=== PATIENT | male | born 1960 | race Caucasian/White ===

== ENCOUNTER 2023-04-03 15:04 | Observation (INO) | payer OTHER, SELFPAY ==
[2023-04-03] VITALS (16 sets, daily range): BP systolic 108–158; BP diastolic 68–97; PULSE 71–85; RESP 18–28; TEMP 36.4–37.2; O2SAT 92–100; BMI 23.6
--- NOTE | 2023-04-03 15:23 | DI.RAD.S_ITS ---
PROCEDURE: XR CHEST 1V INDICATIONS: chest pain TECHNIQUE: One view of the chest was acquired. COMPARISON: None. FINDINGS: Surgical changes and devices: None. Lungs and pleura: Minimal streaky left basilar opacities favored to represent atelectasis. Lungs are otherwise clear. No pleural effusions or pneumothorax. Mediastinum: Mediastinal contours appear normal. Heart size is normal. Bones and chest wall: No suspicious bony lesions. Overlying soft tissues appear unremarkable. IMPRESSION: Streaky left basilar opacities favored to represent atelectasis. Otherwise, no focal airspace disease. No acute cardiopulmonary abnormalities. Consider repeat imaging with dedicated upright PA and lateral views of the chest when patient is able. Dictated by: Narendra Hurtado M.D. on 04/03/2023 at 16:15 Approved by: Narendra Hurtado M.D. on 04/03/2023 at 16:16
[2023-04-03 15:31] LABS: Add Manual Diff / Slide Review NO; Basophils Absolute Auto 100 /uL (0-100); Basophils Percent Auto 1.2 % (0-2); Eosinophils Absolute Auto 200 /uL (0-450); Eosinophils Percent Auto 4.4 % (2-4); Hematocrit 41.5 % (41-53); Hemoglobin 13.7 g/dL (13.5-17.5); Lymphocytes Absolute Auto 1600 /uL (1100-4500); Lymphocytes Percent Auto 30.9 % (25-40); Mean Corpuscular HGB Conc 33.1 % (30-36); Mean Corpuscular Hemoglobin 28.9 PG (26-34); Mean Corpuscular Volume 87.4 fL (80-100); Monocytes Absolute Auto 700 /uL (0-900); Monocytes Percent Auto 13.2 % (3-14); Neutrophils Absolute Auto 2600 /uL (1500-7000); Neutrophils Percent Auto 50.3 % (50-75); Platelet Count 232 X10^3/uL (150-400); Red Blood Cell Count 4.75 X10^6/uL (4.5-5.9); Red Cell Distribution Width 15.3 % (11.6-14.8); White Blood Cell Count 5.1 X10^3/uL (4.5-11.0)
[2023-04-03 15:42] LABS: INR 1.1 (0.9-1.3); Prothrombin Time 12.2 SECONDS (10.1-12.7)
[2023-04-03 15:44] LABS: PTT Partial Thromboplastin Tim 23 SECONDS (26-36)
[2023-04-03 15:46] LABS: Alanine Aminotransferase 21 IU/L (<50); Albumin 4.3 g/dL (3.5-5.0); Albumin Globulin Ratio 1.1 (1.0-2.8); Alkaline Phosphatase 88 U/L (38-126); Aspartate Aminotransferase 26 IU/L (17-59); Bilirubin Total 0.5 mg/dL (0.2-1.3); Blood Urea Nitrogen 18 mg/dL (9-20); Calcium 9.4 mg/dL (8.4-10.2); Carbon Dioxide 24 mmol/L (22-32); Chloride 105 mmol/L (98-107); Creatine Kinase 120 U/L (55-170); Estimated Glomerular Filt Rate > 60 mL/min (>60); Globulin 3.8 g/dL (1.7-4.1); Glucose 219 mg/dL (80-110); Lipase 981 U/L (23-300); Magnesium 1.8 mg/dL (1.6-2.3); Sodium 138 mmol/L (137-145); Total Protein 8.1 g/dL (6.3-8.2)
[2023-04-03 15:48] LABS: HEMOLYSIS 79 (0-50); Potassium 4.3 mmol/L (3.4-5.1)
--- NOTE | 2023-04-03 15:53 | ED.CHESTPAIN ---
HPI - Chest Pain General Chief Complaint: Chest Pain Stated Complaint: bad heart, thinks he is having a heart attack Time Seen by Provider: 04/03/23 15:12 Source: patient Mode of arrival: Wheelchair Limitations: no limitations History of Present Illness HPI narrative: Patient here for sudden onset left-sided chest pain radiating to the left neck 2 hours prior to arrival. Patient took aspirin Plavix Eliquis lisinopril carvedilol. Patient states took home nitroglycerin and it has helped. Patient is from [facility]. He states he is flying back tomorrow to see his administrative support associate for wellness check. Also his pain management doctor. Patient states he had 4 heart attacks in the past and a heart catheterization with stent placed this year. Patient sees Dr. Torres. Related Data Home Medications Medication Instructions Recorded Confirmed amiodarone 200 mg tablet 200 mg PO DAILY 04/03/23 04/03/23 apixaban 5 mg tablet (Eliquis) 5 mg PO BID 04/03/23 04/03/23 aspirin 81 mg tablet,delayed 81 mg PO DAILY 04/03/23 04/03/23 release carvedilol 3.125 mg tablet 3.125 mg PO BID 04/03/23 04/03/23 ciprofloxacin HCl 500 mg tablet 500 mg PO BID 04/03/23 04/03/23 clopidogrel 75 mg tablet 75 mg PO DAILY 04/03/23 04/03/23 empagliflozin 25 mg tablet 25 mg PO QAM 04/03/23 04/03/23 (Jardiance) glipizide 5 mg tablet 5 mg PO DAILY 04/03/23 04/03/23 lisinopril 5 mg tablet 5 mg PO DAILY 04/03/23 04/03/23 metformin 1,000 mg tablet 1,000 mg PO BID 04/03/23 04/03/23 metoprolol succinate 50 mg 50 mg PO DAILY 04/03/23 04/03/23 tablet,extended release 24 hr metronidazole 500 mg tablet 500 mg PO 3XD 04/03/23 04/03/23 nitroglycerin 0.4 mg sublingual 0.4 mg sublingual PRN PRN Chest 04/03/23 04/03/23 tablet Pain potassium chloride 10 mEq 20 meq PO DAILY 04/03/23 04/03/23 capsule,extended release Allergies Allergy/AdvReac Type Severity Reaction Status Date / Time No Known Drug Allergies Allergy Verified 04/03/23 15:14 Review of Systems Review of Systems Narrative: GENERAL: negative chills, fatigue, malaise, fever, sweats. HEENT: negative sinus pain, ear pain, sore throat RESPIRATORY: negative dyspnea, cough CARDIOVASCULAR: Positive chest pain, negative palpitations GASTROINTESTINAL: negative nausea, vomiting, abdominal pain : negative dysuria, frequency, hematuria MUSCULOSKELETAL: negative muscle or bony pain SKIN: negative rash, skin lesions NEUROLOGIC: negative weakness, numbness ROS Unobtainable: All systems reviewed & are unremarkable except as noted in HPI and below Patient History Social History household members: none Smoking Status: Never smoker Smoking Status: Never smoker alcohol intake frequency: other Substance Use Type: does not use Exam Narrative Exam Narrative: GENERAL: in no distress, not toxic not dyspneic HEAD: Normocephalic. EYES: Pupils equal round ENT: Mucous membranes moist. NECK: Trachea midline. CARDIOVASCULAR: Regular rate and rhythm RESPIRATORY: Clear to auscultation. Breath sounds equal bilaterally. No wheezes, rales, or rhonchi. GASTROINTESTINAL: Abdomen soft, non-tender EXTREMITIES: No gross deformities. BACK: No flank tenderness. NEURO: AOx4. Clear speech SKIN: Warm and dry PSYCH: Not anxious, is cooperative Initial Vital Signs Initial Vital Signs: Vital Signs Temperature 99.0 F 04/03/23 15:15 Pulse Rate 84 04/03/23 15:15 Respiratory Rate 18 04/03/23 15:15 Blood Pressure 158/97 H 04/03/23 15:15 Pulse Oximetry 99 04/03/23 15:15 Oxygen Delivery Method Room Air 04/03/23 15:15 Course Orders Ordered: Acetaminophen (Acetaminophen 325 Mg Tablet) 650 mg PO Q6H PRN PRN Reason: Fever/Mild Pain (1-3) Hydrocodone Bitart/Acetaminophen (Hydrocodone/Acet 5/325 Tablet) 1 tab PO Q4HR PRN PRN Reason: Pain, Moderate (4-6) Last Admin: 04/04/23 05:00 Dose: 1 tab Documented By: Admin: 04/03/23 21:48 Dose: 1 tab Documented By: TRACIE Amiodarone HCl (Amiodarone 200 Mg Tablet) 200 mg PO DAILY DAVID Apixaban (Apixaban 5 Mg Tablet) 5 mg PO BID [facility] Last Admin: 04/03/23 21:50 Dose: 5 mg Documented By: TRACIE Aspirin (Aspirin Ec 81 Mg Tablet) 81 mg PO DAILY [facility] Atorvastatin Calcium (Atorvastatin 20 Mg Tablet) 80 mg PO BEDTIME [facility] Last Admin: 04/03/23 21:48 Dose: 80 mg Documented By: TRACIE Carvedilol (Carvedilol 3.125 Mg Tablet) 3.125 mg PO BID [facility] Last Admin: 04/03/23 21:49 Dose: 3.125 mg Documented By: TRACIE Ciprofloxacin (Ciprofloxacin 250 Mg Tablet) 500 mg PO BID [facility] Last Admin: 04/03/23 21:48 Dose: 500 mg Documented By: TRACIE Clopidogrel Bisulfate (Clopidogrel 75 Mg Tablet) 75 mg PO DAILY [facility] Dextrose (D10w) 100 mls @ 1,200 mls/hr IV PRN PRN PRN Reason: Hypoglycemia Insulin Human Lispro (Insulin Lispro 100 Unit/Ml 3ml Vial) 0 unit SUBCUT ACHS [facility]; Protocol Last Admin: 04/04/23 08:12 Dose: Not Given Documented By: Admin: 04/03/23 22:02 Dose: 2 unit Documented By: TRACIE Co-signed By: MS Lisinopril (Lisinopril 5 Mg Tablet) 5 mg PO DAILY [facility] Lorazepam (Lorazepam 0.5 Mg Tablet) 0.5 mg PO Q4HR PRN PRN Reason: Anxiety Last Admin: 04/03/23 21:48 Dose: 0.5 mg Documented By: TRACIE Metoprolol Succinate (Metoprolol Er 50 Mg Tablet) 50 mg PO DAILY [facility] Metronidazole (Metronidazole 500 Mg Tablet) 500 mg PO TID [facility] Last Admin: 04/03/23 21:50 Dose: 500 mg Documented By: TRACIE Morphine Sulfate (Morphine 2 Mg/Ml Inj) 2 mg IV Q2HR PRN PRN Reason: Pain, Moderate (4-6) Naloxone HCl (Naloxone 0.4 Mg/Ml Vial) 0.2 mg IV Q2MIN PRN PRN Reason: Opiate Reversal Ondansetron HCl (Ondansetron 4 Mg/2 Ml Inj) 4 mg IV Q8HR PRN PRN Reason: Nausea And Vomiting Discontinued Medications Carvedilol (Carvedilol 3.125 Mg Tablet) 3.125 mg PO NOW ONE Stop: 04/03/23 21:37 Last Admin: 04/03/23 22:15 Dose: 3.125 mg Documented By: TRACIE Heparin Sodium (Porcine) (Heparin 5,000 Unit/Ml Vial) 5,000 unit SUBCUT BID DAVID Nitroglycerin (Nitroglycerin Oint 1 Inch/Gm Oint...G.) 1 inch TOP NOW ONE Stop: 04/03/23 15:54 Last Admin: 04/03/23 16:07 Dose: 1 inch Documented By: URMILA Vital Signs Vital signs: Vital Signs - 8 hr 04/03/23 15:15 04/03/23 15:45 04/03/23 16:07 Temperature 99.0 F Pulse Rate 84 76 75 Respiratory Rate 18 18 Blood Pressure 158/97 H 115/77 113/76 Pulse Oximetry 99 98 Oxygen Delivery Method Room Air Room Air 04/03/23 16:10 04/03/23 16:11 04/03/23 16:11 Temperature Pulse Rate 83 80 Respiratory Rate 23 24 Blood Pressure 113/75 Pulse Oximetry 98 98 Oxygen Delivery Method 04/03/23 16:30 04/03/23 16:30 04/03/23 17:02 Temperature Pulse Rate 74 76 Respiratory Rate 18 20 Blood Pressure 113/68 Pulse Oximetry 99 99 Oxygen Delivery Method 04/03/23 17:03 Temperature Pulse Rate Respiratory Rate Blood Pressure 129/87 Pulse Oximetry Oxygen Delivery Method MDM - Chest Pain Lab Data 04/04/23 04:55 04/04/23 04:55 Labs: Lab Results 04/03/23 04/03/23 Range/Units 15:18 17:15 WBC 5.1 (4.5-11.0) X10^3/uL RBC 4.75 (4.5-5.9) X10^6/uL Hgb 13.7 (13.5-17.5) g/dL Hct 41.5 (41-53) % MCV 87.4 (80-100) fL MCH 28.9 (26-34) PG MCHC 33.1 (30-36) % RDW 15.3 H (11.6-14.8) % Plt Count 232 (150-400) X10^3/uL Neut % (Auto) 50.3 (50-75) % Lymph % (Auto) 30.9 (25-40) % Allen % (Auto) 13.2 (3-14) % Eos % (Auto) 4.4 H (2-4) % Baso % (Auto) 1.2 (0-2) % Neut # (Auto) 2600 (0771-7932) /uL Lymph # (Auto) 1600 (3372-5582) /uL Allen # (Auto) 700 (0-900) /uL Eos # (Auto) 200 (0-450) /uL Baso # (Auto) 100 (0-100) /uL PT 12.2 (10.1-12.7) SECONDS INR 1.1 (0.9-1.3) APTT 23 L (26-36) SECONDS Sodium 138 (137-145) mmol/L Potassium 4.3 (3.4-5.1) mmol/L Chloride 105 (98-107) mmol/L Carbon Dioxide 24 (22-32) mmol/L BUN 18 (9-20) mg/dL Creatinine 0.82 (0.66-1.25) mg/dL Estimated GFR > 60 (>60) mL/min BUN/Creatinine Ratio 22.0 (6-22) Glucose 219 H (80-110) mg/dL Calcium 9.4 (8.4-10.2) mg/dL Magnesium 1.8 (1.6-2.3) mg/dL Total Bilirubin 0.5 (0.2-1.3) mg/dL AST 26 (17-59) IU/L ALT 21 (<50) IU/L Alkaline Phosphatase 88 (38-126) U/L Total Creatine Kinase 120 105 (55-170) U/L Troponin I < 0.012 < 0.012 (0.01-0.034) ng/mL Total Protein 8.1 (6.3-8.2) g/dL Albumin 4.3 (3.5-5.0) g/dL Globulin 3.8 (1.7-4.1) g/dL Albumin/Globulin Ratio 1.1 (1.0-2.8) Lipase 981 H (23-300) U/L Imaging Data Chest x-ray: Radiologist's Impression: [address] [address] XRay Report Signed Patient: Mauri Red MR#: [id number] : 1960 Acct:[id number] Age/Sex: 62 / M Date of Service: 04/03/23 Loc: ED Accession Number: [id number] Procedure: XR chest 1V Ordering Provider: Ranulfo Hart MD PROCEDURE: XR CHEST 1V INDICATIONS: chest pain TECHNIQUE: One view of the chest was acquired. COMPARISON: None. FINDINGS: Surgical changes and devices: None. Lungs and pleura: Minimal streaky left basilar opacities favored to represent atelectasis. Lungs are otherwise clear. No pleural effusions or pneumothorax. Mediastinum: Mediastinal contours appear normal. Heart size is normal. Bones and chest wall: No suspicious bony lesions. Overlying soft tissues appear unremarkable. IMPRESSION: Streaky left basilar opacities favored to represent atelectasis. Otherwise, no focal airspace disease. No acute cardiopulmonary abnormalities. Consider repeat imaging with dedicated upright PA and lateral views of the chest when patient is able. Dictated by: Narendra Hurtado M.D. on 04/03/2023 at 16:15 Approved by: Narendra Hurtado M.D. on 04/03/2023 at 16:16 [facility] Narrative Medical decision making narrative: After history and exam MDM CC: Complicating co-morbidities: Data collected from: Medical records reviewed: Differential considered: Includes but not limited to Exam documented above, pertinent findings include: Lab Test results independently reviewed as above. Pertinent findings: WBC 5.1 hemoglobin 13.7 sodium 138 potassium 4.3 AST 26 ALT 21 GFR greater than 60 lipase 981 Troponin less than 0.012 Independently reviewed EKG normal sinus rhythm rate [address] elevation or depression Imaging studies independently reviewed: Chest x-ray no acute finding Consultations: 3:[address] Cyrus Stinson, administrative support associate in [place], [place], he has reviewed patient's chart with [place]. Patient has nonischemic cardiomyopathy. He does not see a stent placed in patient's records or heart catheterization. Last echocardiogram was in December of this year 40% ejection fraction. Recommends patient to be admitted overnight for observation. Stress test if possible in the morning 5:20 p.m. spoke with hospitalist, dr mo, will admit pt for stress test Treatments: Nitro paste Re-evaluations: Reviewed results with patient. Chest pain-free after nitro given. Agrees for admission observation overnight. Discussion: Appropriate for admission. Patient will require observation possible stress test. I did speak with patient's cardiology group in [place]. Recommend patient to be observed overnight. Diagnosis: Acute chest pain Discharge Plan Departure Patient Disposition: Admitted as Observation Clinical Impression: Chest pain Qualifiers: Chest pain type: unspecified Qualified Code(s): R07.9 - Chest pain, unspecified Admit Date/Time: 04/03/23 17:25 Admit Provider: Hayder Mo
[2023-04-03 15:58] LABS: Troponin I < 0.012 ng/mL (0.01-0.034)
[2023-04-03] MEDS: NITROGLYCERIN OINT 1 INCH/GM OINT...G. TOP (16:07)
[2023-04-03 17:35] LABS: Creatine Kinase 105 U/L (55-170)
[2023-04-03 17:48] LABS: Troponin I < 0.012 ng/mL (0.01-0.034)
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
--- NOTE | 2023-04-03 18:23 | DI.ECHO.S_ITS ---
[facility]---------+ [facility] +---------+ : : [address] [place] [address] : : : : [id number] : : : : Phone: [phone]+ Echocardiogram Report + + :Name: JESÚS BELTRAN Study Date: 04/04/2023 Height: 64 in : :[facility] ReadingLocation: Weight: 138 lb : : Gender: Male BSA: 1.7 m2 : :: 1960 Age: 62 yrs BP: 135/86 mmHg: :Reason For Study: CHEST PAIN : :Ordering Physician: JASWANT, : :ADI Performed By: Melyssa Enrique : :Referring: ADI MICHAUD : + + Interpretation Summary 1) Normal left ventricular size and thickness with moderately reduced systolic function (EF 35-40%). 2) Basal to mid inferolateral wall extending to mid anterolateral wall are akinetic/aneurysmal. Rest of the LV is mildly hypokinetic. 3) Normal right ventricular size and function. 4) No significant valvular abnormalities. 5) No prior Echo available for comparison. Procedure: A two-dimensional transthoracic echocardiogram with color flow and Doppler was performed. The study quality was technically adequate. There is no prior echocardiogram noted for this patient. The patient was in sinus rhythm with heart rates between 68-71 bpm during the exam. Left Ventricle: The left ventricle is normal in size. There is normal left ventricular wall thickness. The ejection fraction is estimated to be 35-40%. Basal to mid inferolateral wall extending to mid anterolateral wall are akinetic/aneurysmal. Rest of the LV is mildly hypokinetic. Diastolic parameters suggest a pseudonormalization pattern, consistent with probable elevated filling pressures. Right Ventricle: The right ventricle is normal in size and function. Atria: The left atrium is moderately dilated. The right atrium is mildly dilated. There is no Doppler evidence for an interatrial shunt. Mitral Valve: The mitral valve leaflets appear mildly thickened, but open well. There is mild mitral regurgitation. Aortic Valve: The aortic valve is trileaflet. The aortic valve opens well. There is no aortic valve stenosis. No aortic regurgitation is present. Tricuspid Valve: The tricuspid valve is normal in structure and function. There is trace tricuspid regurgitation. Pulmonary artery pressures cannot be estimated because of the lack of a measurable TR jet velocity. Pulmonic Valve: The pulmonic valve leaflets are thin and pliable; valve motion is normal. There is no pulmonic valvular regurgitation. Great Vessels: The aortic root is normal size. The dimensions of the ascending aorta are normal. The IVC is of normal diameter and collapses greater than 50% with a sniff. This suggests a low right atrial pressure of 3 mm Hg. Pericardium/ Pleura There is no pericardial effusion. There is no pleural effusion. MMode/2D Measurements & Calculations LVIDd: 5.3 cm LVOT diam: 2.1 cm LVIDs: 4.1 cm Ao root diam: 3.0 cm FS: 22.2 % asc Aorta Diam: 3.3 cm EPSS: 1.6 cm IVSd: 0.97 cm LVPWd: 1.1 cm LV ratliff. diameter/BSA (cm/m^2): 3.2 LV sys. diameter/BSA (cm/m^2): 2.5 LA A2 area: 25.3 cm2 RA long axis: 5.9 cm LA A4 area: 22.0 cm2 RA area: 20.0 cm2 LA length (vol): 6.3 cm RA vol: 57.5 ml LA vol: 75.5 ml RA : 34.4 ml/m2 LA vol index: 45.2 ml/m2 IVC diam: 1.2 cm RVD1 (basal): 3.9 cm RVD2 (mid): 3.5 cm TAPSE: 1.6 cm Doppler Measurements & Calculations Ao V2 max: 127.4 cm/sec LVOT Max Rob: 99.4 cm/sec Ao V2 mean: 98.5 cm/sec LV V1 max P.9 mmHg Ao max P.5 mmHg LV V1 VTI: 16.9 cm Ao mean P.1 mmHg JAMAL(I,D): 2.3 cm2 Ao V2 VTI: 24.7 cm JAMAL(V,D): 2.6 cm2 sev ratio: 0.68 JAMAL indexed to BSA (cm^2/m^2): 1.4 MV E max rob: 89.6 cm/sec PA V2 max: 91.3 cm/sec MV A max rob: 62.8 cm/sec PA V2 mean: 61.3 cm/sec MV E/A: 1.4 PA mean P.8 mmHg Med Peak E' Rob: 4.6 cm/sec PA pr(Accel): 50.7 mmHg E/E' med: 19.3 Lat Peak E' Rob: 6.6 cm/sec E/E' lat: 13.7 E/e' average: 16.5 MV dec time: 0.23 sec SV(LVOT): 56.5 ml Reading Physician:09:32 AM
--- NOTE | 2023-04-03 19:49 | PM.HP.1 ---
History of Present Illness History of Present Illness Date Patient Seen: 04/03/23 Time Patient Seen: 18:00 Chief complaint: bad heart, thinks he is having a heart attack Narrative: Mr. Red is a 62M with PMH CAD, DM, atrial fibrillation and recent diagnosis of GI infection who presents to the hospital with chest pain and shortness of breath. He states he has had multiple heart attacks in the past. He lives in [place] and gets his care there. 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 This has now resolved In the ED workup was done, vitals notable for afebrile, heart rate 80s, blood pressure 150s/90s, sats 99% on room air. Labs reviewed by me and notable for WBC 5.1, hgb 13.7, creatinine 0.82. Troponin negative. EKG with no acute changes. ED physician discussed with his physician relations representative who recommended echo and stress test. [facility] Social History household members: none Smoking Status: Never smoker Meds Home Medications and Allergies Home Medications Medication Instructions Recorded Confirmed Type amiodarone 200 mg tablet 200 mg PO DAILY 04/03/23 04/03/23 History apixaban 5 mg tablet (Eliquis) 5 mg PO BID 04/03/23 04/03/23 History aspirin 81 mg tablet,delayed 81 mg PO DAILY 04/03/23 04/03/23 History release carvedilol 3.125 mg tablet 3.125 mg PO BID 04/03/23 04/03/23 History ciprofloxacin HCl 500 mg tablet 500 mg PO BID 04/03/23 04/03/23 History clopidogrel 75 mg tablet 75 mg PO DAILY 04/03/23 04/03/23 History empagliflozin 25 mg tablet 25 mg PO QAM 04/03/23 04/03/23 History (Jardiance) glipizide 5 mg tablet 5 mg PO DAILY 04/03/23 04/03/23 History lisinopril 5 mg tablet 5 mg PO DAILY 04/03/23 04/03/23 History metformin 1,000 mg tablet 1,000 mg PO BID 04/03/23 04/03/23 History metoprolol succinate 50 mg 50 mg PO DAILY 04/03/23 04/03/23 History tablet,extended release 24 hr metronidazole 500 mg tablet 500 mg PO 3XD 04/03/23 04/03/23 History nitroglycerin 0.4 mg sublingual 0.4 mg sublingual PRN PRN Chest 04/03/23 04/03/23 History tablet Pain potassium chloride 10 mEq 20 meq PO DAILY 04/03/23 04/03/23 History capsule,extended release Allergies Allergy/AdvReac Type Severity Reaction Status Date / Time No Known Drug Allergies Allergy Verified 04/03/23 15:14 Review of Systems Review of Systems Narrative: 14 systems reviewed and negative aside from what is noted in HPI Exam Vital Signs (past 8 hours): - 04/03/23 15:15 04/03/23 15:45 04/03/23 16:07 Temperature 99.0 F Pulse Rate 84 76 75 Respiratory Rate 18 18 Blood Pressure 158/97 H 115/77 113/76 Pulse Oximetry 99 98 Oxygen Delivery Method Room Air Room Air Oxygen Flow Rate 04/03/23 16:10 04/03/23 16:11 04/03/23 16:11 Temperature Pulse Rate 83 80 Respiratory Rate 23 24 Blood Pressure 113/75 Pulse Oximetry 98 98 Oxygen Delivery Method Oxygen Flow Rate 04/03/23 16:30 04/03/23 16:30 04/03/23 17:02 Temperature Pulse Rate 74 76 Respiratory Rate 18 20 Blood Pressure 113/68 Pulse Oximetry 99 99 Oxygen Delivery Method Oxygen Flow Rate 04/03/23 17:03 04/03/23 17:03 04/03/23 17:15 Temperature Pulse Rate 78 85 Respiratory Rate 20 23 Blood Pressure 129/87 Pulse Oximetry 99 Oxygen Delivery Method Oxygen Flow Rate 04/03/23 17:27 04/03/23 17:27 04/03/23 17:30 Temperature Pulse Rate 73 Respiratory Rate 28 H Blood Pressure 125/71 122/69 Pulse Oximetry 99 Oxygen Delivery Method Oxygen Flow Rate 04/03/23 17:30 04/03/23 17:45 04/03/23 17:45 Temperature Pulse Rate 72 71 Respiratory Rate 28 H 19 Blood Pressure 108/68 Pulse Oximetry 98 92 Oxygen Delivery Method Oxygen Flow Rate 04/03/23 18:00 Temperature 97.6 F Pulse Rate 71 Respiratory Rate 25 H Blood Pressure 118/78 Pulse Oximetry 100 Oxygen Delivery Method Oxygen Flow Rate 0 Oxygen Delivery Method Room Air Oxygen Flow Rate 0 Narrative Exam Narrative: GEN: no acute distress CV: irregular, no murmurs PULM: clear bilaterally ABD: soft, nontender, nondistended EXT: warm and well perfused, no edema NEURO: awake, alert, oriented, no focal deficits Objective Labs 04/03/23 15:18 04/03/23 15:18 Labs: Laboratory Results - last 24 hr 04/03/23 04/03/23 15:18 17:15 WBC 5.1 RBC 4.75 Hgb 13.7 Hct 41.5 MCV 87.4 MCH 28.9 MCHC 33.1 RDW 15.3 H Plt Count 232 Neut % (Auto) 50.3 Lymph % (Auto) 30.9 [place] % (Auto) 13.2 Eos % (Auto) 4.4 H Baso % (Auto) 1.2 Neut # (Auto) 2600 Lymph # (Auto) 1600 [place] # (Auto) 700 Eos # (Auto) 200 Baso # (Auto) 100 PT 12.2 INR 1.1 APTT 23 L Sodium 138 Potassium 4.3 Chloride 105 Carbon Dioxide 24 BUN 18 Creatinine 0.82 Estimated GFR > 60 BUN/Creatinine Ratio 22.0 Glucose 219 H Calcium 9.4 Magnesium 1.8 Total Bilirubin 0.5 AST 26 ALT 21 Alkaline Phosphatase 88 Total Creatine Kinase 120 105 Troponin I < 0.012 < 0.012 Total Protein 8.1 Albumin 4.3 Globulin 3.8 Albumin/Globulin Ratio 1.1 Lipase 981 H Assessment & Plan Assessment & Plan narrative: 1. Chest pain with history of CAD -EKG shows no acute ischemia -troponin negative, recheck in AM -continue aspirin, plavix, statin -physician relations representative recommended stress test and echo 2. Atrial fibrillation -continue amiodarone and apixban -continue coreg 3. Type 2 Diabetes -ordered insulin sliding scale 4. Gastrointestinal infection, diverticulitis -continue cipro, flagyl I have discussed plan of care and obtained history from patient. I have discussed plan with ED physician and bedside nurse. I have reviewed labs, imaging. CODE: Full Proxy: None Quality [facility] - Meds 'Current medications' to include all prescriptions, [id number] products, herbals, cannabis/cannabidiol products, and vitamin/mineral/dietary (nutritional) supplements. I have utilized all available resources to obtain, update, or review the patient?s current medications. [If Yes, STOP here]: Yes
[2023-04-03] MEDS: HYDROCODONE/ACET 5/325 TABLET 1 TAB PO (21:48)
[2023-04-03] MEDS: CIPROFLOXACIN 250 MG TABLET 500 MG PO (21:48)
[2023-04-03] MEDS: ATORVASTATIN 20 MG TABLET 80 MG PO (21:48)
[2023-04-03] MEDS: LORazepam 0.5 MG TABLET PO (21:48)
[2023-04-03] MEDS: carvediloL 3.125 MG TABLET PO ×2 (21:49→22:15)
[2023-04-03] MEDS: metroNIDAZOLE 500 MG TABLET PO (21:50)
[2023-04-03] MEDS: APIXABAN 5 MG TABLET PO (21:50)
[2023-04-03] MEDS: INSULIN LISPRO 100 UNIT/ML 3ML VIAL SUBCUT (22:02)
[2023-04-04] VITALS: BP 104/58; PULSE 80; RESP 18; TEMP 36.4; O2SAT 99
[2023-04-04 04:00] VITALS: BP 135/86; PULSE 65; RESP 17; TEMP 36.1; O2SAT 99
[2023-04-04] MEDS: HYDROCODONE/ACET 5/325 TABLET 1 TAB PO ×2 (05:00→09:57)
[2023-04-04 05:50] LABS: Add Manual Diff / Slide Review NO; Basophils Absolute Auto 0 /uL (0-100); Basophils Percent Auto 0.8 % (0-2); Eosinophils Absolute Auto 300 /uL (0-450); Eosinophils Percent Auto 5.2 % (2-4); Hematocrit 38.6 % (41-53); Hemoglobin 12.9 g/dL (13.5-17.5); Lymphocytes Absolute Auto 1400 /uL (1100-4500); Lymphocytes Percent Auto 29.5 % (25-40); Mean Corpuscular HGB Conc 33.3 % (30-36); Mean Corpuscular Hemoglobin 28.9 PG (26-34); Mean Corpuscular Volume 86.8 fL (80-100); Monocytes Absolute Auto 600 /uL (0-900); Neutrophils Absolute Auto 2500 /uL (1500-7000); Neutrophils Percent Auto 52.5 % (50-75); Platelet Count 183 X10^3/uL (150-400); Red Blood Cell Count 4.45 X10^6/uL (4.5-5.9); Red Cell Distribution Width 15.2 % (11.6-14.8); White Blood Cell Count 4.8 X10^3/uL (4.5-11.0)
[2023-04-04 06:01] LABS: BUN Creatinine Ratio 31.8 (6-22); Blood Urea Nitrogen 21 mg/dL (9-20); Calcium 9.4 mg/dL (8.4-10.2); Carbon Dioxide 23 mmol/L (22-32); Chloride 104 mmol/L (98-107); Estimated Glomerular Filt Rate > 60 mL/min (>60); Glucose 206 mg/dL (80-110); HEMOLYSIS < 15 (0-50); Potassium 3.5 mmol/L (3.4-5.1); Sodium 135 mmol/L (137-145)
[2023-04-04 06:11] LABS: Troponin I < 0.012 ng/mL (0.01-0.034)
[2023-04-04 07:36] VITALS: BP 131/83; PULSE 65; RESP 18; TEMP 36.1; O2SAT 99
[2023-04-04 08:26] LABS: D Dimer 259 ng/ml (<500)
--- NOTE | 2023-04-04 08:26 | PC.NURSE ---
Day Shift Patient moved self into sitting position in bed and then reported left chest pain that increased with deep breathing, VSS (see chart), 08/25 pain. 12 lead EKG obtained and MD notified, new lab orders received. Pt reported chest pain resolved without intervention 5 min after initial report.
[2023-04-04] MEDS: AMIODARONE 200 MG TABLET PO (08:37)
[2023-04-04] MEDS: lisinopriL 5 MG TABLET PO (08:37)
[2023-04-04] MEDS: ASPIRIN EC 81 MG TABLET PO (08:37)
[2023-04-04] MEDS: CIPROFLOXACIN 250 MG TABLET 500 MG PO (08:37)
[2023-04-04] MEDS: APIXABAN 5 MG TABLET PO (08:38)
[2023-04-04] MEDS: POTASSIUM CHLORIDE 20 MEQ TAB 40 MEQ PO (08:38)
[2023-04-04] MEDS: metroNIDAZOLE 500 MG TABLET PO (08:38)
[2023-04-04] MEDS: CLOPIDOGREL 75 MG TABLET PO (08:38)
[2023-04-04 08:53] VITALS: O2SAT 92
[2023-04-04] MEDS: LIDOCAINE PATCH 1 EACH ADH..PATCH TOP (09:57)
[2023-04-04] MEDS: LORazepam 0.5 MG TABLET PO (09:57)
[2023-04-04 12:00] VITALS: BP 115/76; PULSE 80; RESP 20; TEMP 36.2; O2SAT 100
[2023-04-04] MEDS: INSULIN LISPRO 100 UNIT/ML 3ML VIAL SUBCUT (12:35)
--- NOTE | 2023-04-04 14:13 | CM.DANOTE ---
Initial DCP Assessment Note Pt is a 62 yo male, resident of [place], visiting friends and family while on his boat in [place], presents to the hospital with chest pain and shortness of breath Patient admitted OBS with echo and stress test ordered. Reviewed chart, pt discussed in multidisciplinary rounds this morning. Patient likely will discharge home after echo and stress test today, no needs identified by provider or nursing team . No barriers identified at this time to patient's safe discharge home ; close outpatient f/u recommended. Patient plans to drive his own car in the parking lot to the airport, patient is planning on flying home to [place]. CM team will plan to follow closely in case any DC needs or concerns arise before discharge. TRESA Garrett Discharge Planning/Care Management Discharge Assessment Start: 04/04/23 14:11 Freq: Status: Active Protocol: Document 04/04/23 14:11 SHIVANI (Rec: 04/04/23 14:13 SHIVANI [id number]) Discharge Planning Assessment Assigned Twister Tender TRESA Barajas/Assigned Designee Name Amber Hr Generalist/DPOA Contact Information [phone] Advance Directives? No History Provided By Patient,Medical Record Prior Living Arrangements Other Comment lives on his boat while in [place] visiting family. Home [place]. Household Members none Type of transporation used prior to Drives own vehicle admit Independent with ADL's Yes Is patient alert and oriented? Yes Barriers to Discharge No Discharge Plan Home Transportation Arrangement Self or friend Referrals Initiated None needed
--- NOTE | 2023-04-04 19:56 | DI.NM.S_ITS ---
DATE OF SERVICE: 04/04/2023 EXAMINATION: Exercise perfusion study. INDICATIONS: Known history of coronary artery disease, multiple heart attacks, diabetes mellitus, paroxysmal AFib, chest pain. RADIOPHARMACEUTICAL: 27.5 mCi technetium-99m Myoview IV was injected at stress and 7.8 mCi technetium-99m Myoview IV was injected at rest. CARDIAC STRESS: The patient underwent exercise perfusion study under the supervision of an attending staff. He walked on Santos protocol for 7 minutes and 6 seconds, achieved maximum heart rate of 145, which is 91% of target heart rate. Resting blood pressure 120/80 and peak blood pressure 150/84. Achieved 8 METS of workload, MANNY positive 16%. No chest pain, however, had fatigue and dyspnea. Baseline rhythm was sinus. During stress, no convincing ischemic changes seen. Rare PVCs without any complex arrhythmias. RAW DATA: Raw data there is increased subdiaphragmatic activity. GATED STUDY: Stress LV ejection fraction 48% with hypokinetic inferior wall and lateral wall. Lung/heart ratio 0.52, which is abnormal. TID ratio 0.90, which is within normal limits. Stress end-diastolic volume 161 mL. MYOCARDIAL PERFUSION SCAN: Stress supine, resting supine and stress prone images were compared to each other. There appears to be predominantly fixed, large size, severely decreased perfusion of inferior wall extending into the inferior apex and entire lateral wall as well as lateral apex without any significant reversible ischemia. CONCLUSION: This is an abnormal myocardial perfusion study consistent with large-sized infarction of inferior wall extending into the entire lateral wall, lateral apex, as well as inferior apex without any significant wall motion abnormalities. Diminished exercise tolerance. Normal hemodynamic response. No ischemic electrocardiographic changes. No complex arrhythmia. No anginal symptoms however, felt fatigue and dyspnea. Stress left ventricular ejection fraction 48% with hypokinetic inferior wall and lateral wall. Correlate clinically. 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
--- NOTE | 2023-04-04 21:32 | PM.DS.1 ---
History of Present Illness History of Present Illness Chief complaint: bad heart, thinks he is having a heart attack Narrative: Mr. Red is a 62M with PMH CAD, DM, atrial fibrillation and recent diagnosis of GI infection who presents to the hospital with chest pain and shortness of breath. He states he has had multiple heart attacks in the past. He lives in [place] and gets his care there. 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 This has now resolved In the ED workup was done, vitals notable for afebrile, heart rate 80s, blood pressure 150s/90s, sats 99% on room air. Labs reviewed by me and notable for WBC 5.1, hgb 13.7, creatinine 0.82. Troponin negative. EKG with no acute changes. ED physician discussed with his senior operations analyst who recommended echo and stress test. Discharge Providers Provider Date of admission: 04/03/23 17:25 Discharge Date: 04/04/23 Primary care physician: Doctor Carlos MD Discharge provider: Hayder Jaffe MD Summary Hospital Course Discharge Diagnosis: 1. Atypical chest pain 2. History of CAD 3. Atrial fibrillation 4. Diverticulitis 5. Type 2 DM Hospital Course: Mr. Red was admitted with chest pain. This was reproducible with palpation. Troponins were negative. ECHO showed a depressed EF and inferolateral and anterolateral wall motion abnormality. Stress test showed fixed defect inferolaterally. I discussed this with his senior operations analyst in [place] who noted this was similar to prior imaging. He was discharged and planned to follow up with his cardiology within one week. Exam Vital Signs (past 8 hours): Oxygen Delivery Method Room Air Oxygen Flow Rate 0 Narrative Exam Narrative: GEN: no acute distress CV: irregular, no murmurs PULM: clear bilaterally ABD: soft, nontender, nondistended EXT: warm and well perfused, no edema NEURO: awake, alert, oriented, no focal deficits Objective Labs 04/04/23 04:55 04/04/23 04:55 Labs: Laboratory Results - last 24 hr 04/04/23 04/04/23 04:55 08:10 WBC 4.8 RBC 4.45 L Hgb 12.9 L Hct 38.6 L MCV 86.8 MCH 28.9 MCHC 33.3 RDW 15.2 H Plt Count 183 Neut % (Auto) 52.5 Lymph % (Auto) 29.5 [place] % (Auto) 12.0 Eos % (Auto) 5.2 H Baso % (Auto) 0.8 Neut # (Auto) 2500 Lymph # (Auto) 1400 [place] # (Auto) 600 Eos # (Auto) 300 Baso # (Auto) 0 D-Dimer 259 Sodium 135 L Potassium 3.5 Chloride 104 Carbon Dioxide 23 BUN 21 H Creatinine 0.66 Estimated GFR > 60 BUN/Creatinine Ratio 31.8 H Glucose 206 H Calcium 9.4 Troponin I < 0.012 PFSH Social History household members: none Smoking Status: Never smoker Discharge Plan Discharge Plan Patient Disposition: Home Provider Discharge Comment: Mr. Red came to the hospital with chest pain. He had a stress test and ECHO done. We spoke with his cardiology team in [place] who said the two studies were similar to previous. He was feeling improved and will return home and follow up with his senior operations analyst next week. Discharge orders & Medications Prescriptions: New hydrocodone-acetaminophen 5-325 mg Tablet 1 tab PO Q6H PRN (Reason: Pain, Moderate (4-6)) Qty: 4 0RF lidocaine 5 % Adhesive Patch,Medicated 1 patch topical DAILY Qty: 3 0RF Continued amiodarone 200 mg tablet 200 mg PO DAILY metoprolol succinate 50 mg tablet extended release 24 hr 50 mg PO DAILY metronidazole 500 mg tablet 500 mg PO 3XD clopidogrel 75 mg tablet 75 mg PO DAILY aspirin 81 mg tablet,delayed release (DR/EC) 81 mg PO DAILY carvedilol 3.125 mg tablet 3.125 mg PO BID metformin 1,000 mg tablet 1,000 mg PO BID nitroglycerin 0.4 mg tablet, sublingual 0.4 mg sublingual PRN PRN (Reason: Chest Pain) lisinopril 5 mg tablet 5 mg PO DAILY glipizide 5 mg tablet 5 mg PO DAILY Eliquis 5 mg tablet 5 mg PO BID Jardiance 25 mg tablet 25 mg PO QAM potassium chloride 10 mEq capsule, extended release 20 meq PO DAILY ciprofloxacin HCl 500 mg tablet 500 mg PO BID Follow up/Referrals: Miscellaneous,Doctor, [Primary Care Provider] - Diet/Activity/Treatments Diet: Regular Visit Report/Discharge Packet Instructions: DI for Chest Pain, DI for Prescription Opioid Use, Lidocaine Transdermal Patch Stand Alone Forms: Patient Portal/API, Stroke Signs & Symptoms Discharge Data Primary Care Provider: [facility],Doctor Attending Provider: Hayder Jaffe Admit Date/Time: 04/03/23 17:25 Discharges patient from system. Discharge Date/Time: 04/04/23 14:45
== END 2023-04-04 14:45 | disposition home or self-care (01) ==
LOC: ED 16:35 → AC 17:25
PROVIDERS: Admitting Provider Internal Medicine; Emergency Provider Emergency Medicine; Visit Provider Internal Medicine
DX: R07.89 Other chest pain (principal); R06.02 Shortness of breath; I48.91 Unspecified atrial fibrillation; I25.2 Old myocardial infarction; K57.92 Diverticulitis of intestine, part unspecified, without perforation or abscess without bleeding; Z95.818 Presence of other cardiac implants and grafts; Z79.01 Long term (current) use of anticoagulants
CPT/HCPCS: 36415; 71045; 78452; 80048; 80053; 82550; 82962; 83690; 83735; 84484; 85025; 85379; 85610; 85730; 93005; 93010; 93017; 93306; 96372; 99284; G0378; A9502; J1815